=== PATIENT | female | born 1990 | race Caucasian/White ===

== ENCOUNTER 2024-02-09 22:25 | Emergency (ER) | payer MEDICARE, MEDICAID, SELFPAY ==
--- NOTE | ~2024-02-09 | XR_ITS ---
EXAMINATION: XR CHEST CLINICAL INFORMATION: Chest pain. COMPARISON: None available. TECHNIQUE: Frontal view of the chest was obtained. FINDINGS: No significant abnormality is noted involving the heart, lungs, mediastinum, bony thorax or soft tissues. XR/XR chest 1V IMPRESSION: Unremarkable examination.
[2024-02-09 22:46] VITALS: BP 131/80; PULSE 71; RESP 20; TEMP 36.4; O2SAT 95; BMI 24.4
[2024-02-10 01:57] VITALS: BP 134/77; PULSE 68; RESP 16; TEMP 36.8; O2SAT 100
--- NOTE | 2024-02-10 03:41 | ED_ITS ---
HPI - General Adult General Chief complaint: Extremity Problem Stated complaint: feeling unwell Time Seen by Provider: 02/10/24 03:25 Source: patient Mode of arrival: ambulatory Limitations: no limitations History of Present Illness ED Provider: luz marina FLORES narrative: Patient history of depression been crying unable to sleep since her mother in 12/28 from metastatic cancer patient is afraid which might have cancer too Related Data Previous Rx's ?Medication ?Instructions ?Recorded lorazepam 1 mg tablet (Ativan) 1 mg PO BID PRN anxiety #14 tabs 02/10/24 Allergies Allergy/AdvReac Type Severity Reaction Status Date / Time No Known Allergies Allergy Verified 02/09/24 22:47 [No Known Allergies*] Review of Systems Review of Systems: Yes all other systems are reviewed and are negative [facility] Social History Social History Advance Directives: No Advance Directives Information Provided: Yes Physical Exam ED Vital Signs: Vital Signs - 24 hr 02/09/24 22:46 02/10/24 01:57 02/10/24 03:55 Temperature 97.6 F 98.2 F 97.9 F Pulse Rate 71 68 67 Respiratory Rate 20 16 16 Blood Pressure 131/80 134/77 119/78 Pulse Oximetry 95 100 98 Oxygen Delivery Method Room Air Room Air Room Air 02/10/24 05:05 Temperature 97.9 F Pulse Rate 67 Respiratory Rate 16 Blood Pressure 119/78 Pulse Oximetry 98 Oxygen Delivery Method Room Air BMI result Body Mass Index 24.4 Appearance: Alert. Oriented X3. Anxious crying intermittently Eyes: PERRLA, No Nystagmus ENT: Pharynx normal. Oral Mucosa moist Neck: Normal inspection. Neck supple. CVS: Normal heart rate and rhythm. Pulses normal. Respiratory: No respiratory distress. Equal air entry bilateral, no wheezing/rales/rhonchi Abdomen: Soft and nontender. Bowel sounds are present, Skin: Skin warm and dry. Normal skin color. Normal skin turgor. Extremities: No lower extremity edema. No calf tenderness Neuro: Oriented X 3. Medications Administered Discontinued Medications Generic Name Dose Route Start Last Admin Trade Name Freq PRN Reason Stop Dose Admin Lorazepam 2 mg 02/10/24 03:45 02/10/24 03:52 Lorazepam 1 Mg Tablet PO 02/10/24 03:46 2 mg ONCE ONE Administration Medical Decision Making Medical Decision Making MDM Narrative: Patient's anxiety/grieving reaction discharge patient home on Ativan patient felt better after taking the medicine patient does have follow up plan care team spoke to patient briefly Independent Interpretation I performed an independent interpretation of an: Plain X-Ray Interpretation: Negative chest Xray Discharge Plan Discharge Clinical Impression: Grief reaction with prolonged bereavement Patient Disposition: Home, Self-Care Instructions: Grief and Loss (ED) Additional Instructions: Take your medication for depression as prescribed Take Ativan anxiety and sleep as prescribed and follow up with your therapist Prescriptions: New lorazepam [Ativan] 1 mg tablet 1 mg PO BID PRN (Reason: anxiety) Qty: 14 0RF Interventions: ED Discharge Assessment Last Done: 02/10/24 05:05 Discharge Date/Time: 02/10/24 05:10 Print Language: Zimbabwean
[2024-02-10] MEDS: LORazepam 1 MG TABLET 2 MG PO (03:52)
[2024-02-10 03:55] VITALS: BP 119/78; PULSE 67; RESP 16; TEMP 36.6; O2SAT 98
[2024-02-10 05:05] VITALS: BP 119/78; PULSE 67; RESP 16; TEMP 36.6; O2SAT 98
== END 2024-02-10 05:10 | disposition home or self-care (01) ==
PROVIDERS: Emergency Provider Internal Medicine
DX: F43.21 Adjustment disorder with depressed mood (principal); F32.A Depression, unspecified; Z63.4 Disappearance and death of family member
CPT/HCPCS: 71045; 99283; 99284

== ENCOUNTER 2025-06-05 10:23 | Emergency (ER) | payer MEDICARE, MEDICAID, SELFPAY ==
--- NOTE | ~2025-06-05 | XR_ITS ---
CLINICAL HISTORY: Cough 1 view chest x-ray Comparison: CR/SR - XR CHEST 2 VIEWS - 02/10/24 03:43 EDT Findings: Small patchy opacity in the left base may be developing pneumonia versus artifact from overlying breast tissue. No large effusion or pneumothorax. Heart size is normal. No acute fracture. IMPRESSION: Small patchy opacity in the left base may be developing pneumonia versus artifact from overlying breast tissue. This document has been electronically signed by: Vanessa Dempsey MD on 06/05/2025 15:43:31
[2025-06-05 11:04] VITALS: BP 113/66; PULSE 76; RESP 16; TEMP 36.3; O2SAT 97; BMI 25.1
--- NOTE | 2025-06-05 11:11 | ED.GENADULT ---
HPI - General Adult General Chief complaint: Dizziness Stated complaint: Dizziness Time Seen by Provider: 06/05/25 14:03 History of Present Illness ED Provider: Nhi Wilkinson NP HPI narrative: 34 year-old female medical history significant for anxiety, depression presents to the ED with her significant other complaining of feeling off . Denies any specific symptoms including chest pain, shortness of breath, abdominal pain, nausea or vomiting, diarrhea or constipation. Reports she is having a small period right now with a mild amount of spotting. No heavy vaginal bleeding, or vaginal bleeding with clots. Does endorse some vaginal discharge, but denies any abnormal discharge. Denies any odor, foul smell. Denies any urinary complaints such as dysuria, hematuria, urgency or frequency. Denies any fever, chills. Otherwise no recent illnesses. No sensation of the heart racing. Reports that for a month, she has had intermittent difficulty gripping things due to bilateral hand pain, but this has since resolved. Does endorse a headache, now 07/16. No dizziness, lightheadedness, feeling faint. No episodes of syncope. Related Data Previous Rx's ?Medication ?Instructions ?Recorded lorazepam 1 mg tablet (Ativan) 1 mg PO BID PRN anxiety #14 tabs 02/10/24 doxycycline hyclate 100 mg capsule 100 mg PO BID 10 days #20 caps 06/05/25 Allergies Allergy/AdvReac Type Severity Reaction Status Date / Time No Known Allergies (No Known Allergy Verified 06/05/25 11:08 Allergies*) Review of Systems Review of Systems: ROS is otherwise negative unless mentioned in HPI. [facility] Social History Social History Smoked in Last 30 Days: Yes Use of substances other than those prescribed or required for medical reasons: No Advance Directives: No Advance Directives Information Provided: No Physical Exam ED Exam Exam: Nursing notes and vital signs reviewed. Constitutional: Well-appearing, NAD. Alert. Oriented X3. Eyes: EOMI. ENT: Pharynx normal. Neck: Normal inspection. Neck supple. CVS: Normal heart rate and rhythm. Pulses normal. Respiratory: No respiratory distress. Lungs CTA. Abdomen: Soft and nontender, nondistended. No CVA tenderness bilaterally. Skin: Skin warm and dry. Normal skin color. Extremities: No lower extremity edema. Neuro: Oriented X 3. No motor deficit. Vital Signs: Vital Signs - 24 hr 06/05/25 11:04 06/05/25 14:32 Temperature 97.4 F 97.9 F Pulse Rate 76 64 Respiratory Rate 16 20 Blood Pressure 113/66 125/74 Pulse Oximetry 97 100 Oxygen Delivery Method Room Air Room Air BMI result Body Mass Index 25.1 Course Course Course Narrative: Medical screening exam performed. Please refer to detailed history, exam, evaluation, and management by primary provider. Lightheadedness and dizziness, generalized weakness and feeling unwell. Recent heavier than normal menses. Has IUD. Labs ordered. Medications Administered Discontinued Medications Generic Name Dose Route Start Last Admin Trade Name Freq PRN Reason Stop Dose Admin Acetaminophen 975 mg 06/05/25 14:20 06/05/25 14:33 Acetaminophen 325 Mg Tablet PO 06/05/25 14:21 975 mg ONCE ONE Administration Medical Decision Making Medical Decision Making [facility] Narrative: Overall she appears well. She was seen by the triage provider ordered basic lab work, which to my interpretation is overall reassuring without leukocytosis, or significant noted electrolyte abnormalities. Negative viral panel. She would like STI testing, I have ordered this, as well as bacterial vaginosis panel. We will have a chest x-ray given her report of intermittent cough, as she is a smoker to rule out underlying pneumonia though unlikely. Vitally she is stable as well. We will add on urinalysis, urine and reassess. Given complaint of 1 out of 10 headache, we will administer a dose of oral Tylenol. 1545-- Upon reassessment, she does appear well and reports improvement in her symptoms after Tylenol dose. The chest x-ray is concerning for developing pneumonia in the left lower lobe. Her lab work is otherwise reassuring, there is no indication for additional workup in the ED. The urinalysis shows small leukocytes but no bacteria, therefore less likely UTI. Negative for . We will discharge home with oral doxycycline for PNA and have her follow up with primary care provider outpatient. She is agreeable to this plan, provided return precautions to the ED. Differential Diagnosis Differential Diagnoses: The differential diagnosis associated with the presentation includes Headache, electrolyte abnormality or disturbance, anemia, , SCD Admission/Observation Consideration of admission/observation: Escalation of care including admission/observation considered (Not indicated) Lab Data [facility] Lab Attestation statement: I reviewed the patient's lab results. (Overall reassuring.) 06/05/25 11:31 06/05/25 11:31 Labs: Lab Results 06/05/25 06/05/25 Range/Units 11:31 14:16 WBC 6.5 (4.8-10.8) X10*3/uL RBC 4.52 (4.20-5.50) X10*6/uL Hgb 14.4 (12.0-16.0) g/dl Hct 42.5 (37.0-47.0) % MCV 94.0 (80.0-98.0) fL MCH 31.9 (27.0-33.0) pg MCHC 33.9 (31.0-35.0) g/dl RDW 12.5 (11.0-16.0) % Plt Count 246 (160-400) X10*3/uL MPV 10.4 (9.4-12.3) fL Immature Gran % (Auto) 0.3 (0.0-0.4) % Neut % (Auto) 69.0 (45-73) % Lymph % (Auto) 22.1 (20-40) % [place] % (Auto) 6.9 (2-11) % Eos % (Auto) 0.8 (0-4) % Baso % (Auto) 0.9 (0-2) % Lymph # (Auto) 1.4 (1.2-4.9) X10*3/uL [place] # (Auto) 0.5 (0.1-1.2) X10*3/uL Eos # (Auto) 0.1 (0.0-0.4) X10*3/uL Baso # (Auto) 0.1 (0.0-0.2) X10*3/uL Abs Immat Gran (auto) 0.02 (0.00-0.03) X10*3/uL Absolute Neuts (auto) 4.5 (2.0-8.3) x10*3/uL Absolute Nucleated RBC 0.000 (0.0-0.012) X10*3/uL Nucleated RBC % (auto) 0.0 (0.0-0.2) /100WBC Sodium 143 (135-145) mmol/L Potassium 4.2 (3.3-5.1) mmol/L Chloride 111 H (96-108) mmol/L Carbon Dioxide 24 (22-29) mmol/L Anion Gap 12 (12-20) BUN 12 (9-16) mg/dL Creatinine 0.78 (0.5-1.4) mg/dL Estim Creat Clear Calc 91.6 Estimated GFR > 60 Random Glucose 80 (60-115) mg/dL Calcium 9.6 (8.4-10.2) mg/dL Beta HCG, Quant < 2 mIU/mL Urine Color Yellow Urine Appearance Clear Urine pH 6.0 (5.0-9.0) Ur Specific [place] 1.025 (1.005-1.025) Urine Protein Trace (Neg-Trace) mg/dL Urine Glucose (UA) Negative (Negative) mg/dL Urine Ketones Trace (Negative) mg/dL Urine Blood Small (1+) H (Negative) Urine Nitrite Negative (Negative) Ur Leukocyte Esterase Small (1+) H (Negative) Urine RBC 11-20 H (0-2) /HPF Urine WBC 21-50 H (0-5) /HPF Ur Squamous Epith Cells 3-5 (0-2) /HPF Urine Bacteria None Seen (None Seen) Hyaline Casts 3-5 (0-2) /LPF Urine Test NEGATIVE (NEGATIVE) COVID-19 (JUDY) Negative (Negative) COVID-19 Clin Com See Note Influenza Type A (DANIELLE) Negative (Negative) Influenza Type B (DANIELLE) Negative (Negative) Influenza A & B Note See Note Blood Type O Positive Antibody Screen NEGATIVE Independent Interpretation I performed an independent interpretation of an: Plain X-Ray Interpretation: I have reviewed the patient's imaging and agree with the radiologist's findings. Radiology Impression Discussion of test interpretation with radiology: I have reviewed the radiologist's reading. Radiologist Impression: CXR IMPRESSION: Small patchy opacity in the left base may be developing pneumonia versus artifact from overlying breast tissue. Independent Historian Clinical information obtained from an independent historian. History obtained from or confirmed by: Spouse (Boyfriend at bedside.) External Record Review External record reviewed: Other (Prior ER visit.) Chronic Conditions Patient?s care impacted by: Other (Anxiety, Depression) Social Determinants Patient?s care significantly limited by Social Determinants of Health including: Alcoholism and drug addiction in family and Problems related to primary support group Discharge Plan Discharge Clinical Impression: Cough Qualifiers: Cough type: acute Qualified Code(s): R05.1 - Acute cough CAP (community acquired pneumonia) Qualifiers: Laterality: left Lung location: lower lobe of lung Qualified Code(s): J18.9 - Pneumonia, unspecified organism Patient Disposition: Home, Self-Care Instructions: Community Acquired Pneumonia (DC) Additional Instructions: As we discussed, the x-ray of your chest was concerning for developing left lower lobe pneumonia. Otherwise, your lab work is reassuring. You were negative for COVID, flu, RSV. In the urine sample does not show evidence of infection at this time. Please complete the full course of the antibiotics as prescribed. Please follow up with your primary care provider within 1 week. With any worsening complaints, return back to the ED for reassessment. Prescriptions: New doxycycline hyclate 100 mg capsule 100 mg PO BID 10 Days Qty: 20 0RF No Action lorazepam [Ativan] 1 mg tablet 1 mg PO BID PRN (Reason: anxiety) Qty: 14 0RF Referrals: [facility] [place] Family Medicine [Provider Group, Family Practice] Print Language: Bolivian
[2025-06-05 11:37] LABS: MANUAL DIFF FLAG NO
[2025-06-05 11:47] LABS: Hematocrit 42.5 % (37.0-47.0); Hemoglobin 14.4 g/dl (12.0-16.0); Imm Gran Abs Auto 0.02 X10*3/uL (0.00-0.03); Imm Gran Pct Auto 0.3 % (0.0-0.4); Lymphocytes Absolute Auto 1.4 X10*3/uL (1.2-4.9); Mean Corpuscular HGB Conc 33.9 g/dl (31.0-35.0); Mean Corpuscular Hemoglobin 31.9 pg (27.0-33.0); Mean Corpuscular Volume 94.0 fL (80.0-98.0); NRBC Abs Auto 0.000 X10*3/uL (0.0-0.012); NRBC Pct Auto 0.0 /100WBC (0.0-0.2); Platelet Count 246 X10*3/uL (160-400); Red Blood Count 4.52 X10*6/uL (4.20-5.50); White Blood Count 6.5 X10*3/uL (4.8-10.8)
[2025-06-05 11:52] LABS: Anion Gap 12 (12-20); Blood Urea Nitrogen 12 mg/dL (9-16); Calcium 9.6 mg/dL (8.4-10.2); Carbon Dioxide 24 mmol/L (22-29); Chloride 111 mmol/L (96-108); Creatinine Clr Calc Pharmacy 91.6; Estimated Glomerular Filt Rate > 60; Potassium 4.2 mmol/L (3.3-5.1); Sodium 143 mmol/L (135-145)
[2025-06-05 11:56] LABS: COVID-19 Test Negative (Negative); IDNOW Serial# 55D5AD1C
[2025-06-05 11:57] LABS: IDNOW Serial# 58CA691E; Influenza B2 Negative (Negative)
--- OUTSIDE RECORDS SUMMARY | 2025-06-05 13:22 | XMS_ITS | Clinical Summary ---
Author Organization [facility] [address] [facility] Address [address], [place] Phone Care Team Providers Care Admin Dir Name Role Phone Daja Guerra MD Primary Care Provider [phone] Allergies No known active allergies Medications diclofenac (VOLTAREN) 1 % topical gel Apply 2 g topically 4 times daily. Apply to right elbow. 04/06/20 24 Active acetaminophen (TYLENOL) 500 mg tablet Take 1 tablet (500 mg total) by mouth every 6 (six) hours if needed. 04/15/20 23 Active methylphenidate (Concerta) 36 mg ER tablet TAKE 1 TABLET BY MOUTH EVERY DAY IN THE MORNING DNF UNTIL 07/31/21 NEED INS 08/01/19 22 Active levonorgestreL (Kyleena) 17.5 mcg/24 hr (5 yrs) 19.5 mg intrauterine device IUD 19.2 mg by Intrauterine route Once. 08/27/19 22 Active LORazepam (ATIVAN) 0.5 mg tablet TAKE 1 TABLET BY MOUTH EVERY DAY NEEDED FOR ANXIETY Active LORazepam (ATIVAN) 1 mg tablet TAKE 1 TABLET BY MOUTH TWICE A DAY NEEDED FOR ANXIETY Active naltrexone microspheres (VIVITROL) 380 mg suspension,extend ed rel recon intramuscular suspension Active sertraline (ZOLOFT) 100 mg tablet Active Active Problems Problem Noted Date Diagnosed Date Adult ADHD 04/30/2024 Overview (04/30/2024): Previous use of methylphenidate Episodic drug abuse (CMS/HCC V24, CMS/HCC V28) 1 Gallstones 04/30/2024 History of alcohol abuse 04/30/2024 OCD (obsessive compulsive disorder) 04/30/2024 IUD (intrauterine device) in place 11/07/2021 Overview (04/30/2024): Last Assessment & Plan: I discussed with the patient that the Kyleena will not interact with her current medications. We reviewed that, as the Kyleena is a hormonal medication, there is a risk that it could lead to worsening depression, however her mood symptoms may or may not be related to the IUD. Alternative contraceptive options were reviewed and the patient declines any alternative. She is currently sexually active and not interested in . I encouraged the patient to leave the IUD in place at this time and discuss her symptoms with her therapist prior to deciding to remove the IUD. In addition I assured her that the position of the strings of the IUD is appropriate and it is unlikely that her partner would experience pain from the strings of the IUD as the ends are tucked behind her cervix. This patient agrees for the IUD to remain in place at this time. Vaginal discharge 11/07/2021 Overview (04/30/2024): Last Assessment & Plan: Wet prep and GC/CT done today, will treat as indicated. Encouraged condom use for STD prevention. 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 Overview (04/30/2024): Will start valtrex at 36 weeks Anemia affecting in second trimester 1 Intellectual disability 08/20/2012 Encounters Date Type Department Care Team Description 05/05/2025 Telephone Adult Medicine [address] [id number] Daja uGerra MD from Last 3 Months Immunizations Immunization Administration Dates Next Due HPV, Quadrivalent 05/11/2014,12/01/2013,09/30/19 14 Influenza Quadravalent, MDCK , 0.5ml, preservative free (Flucelvax) 6mo and older 04/15/2023,05/05/2018 Influenza Quadravalent, MDCK , 0.5ml, with preservative (Flucelvax) 6mo and older 06/17/2017 Influenza trivalent, 0.5mL, preservative free (Fluarix; FluLaval; Fluzone) ages 6mo and older (Afluria) 3 years and older 07/31/2012 Tdap Tetanus diptheria acell ular pertussis (Boostrix; Adacel) 7yo and older 05/05/2018,04/11/2014 Surgical History Surgery Date Site/Laterality Comments WISDOM TOOTH EXTRACTION PROCEDURE: HISTORICAL WISDOM TEETH EXTRACTION TONSILLECTOMY PROCEDURE: HISTORICAL TONSILLECTOMY SECTION 07/2018 PROCEDURE: HISTORICAL DELIVERY CHOLECYSTECTOMY 2018 PROCEDURE: HISTORICAL CHOLECYSTECTOMY Medical History Medical History Date Comments Adult ADHD DX:Adult ADHD; C OMMENT: sees a counselor OCD (obsessive compulsive disorder) DX:OCD (obsessive compulsive disorder); COMMENT: sees a counselor Chlamydia 2012 DX:Chlamydia Herpes simplex type 1 antibody positive DX:Herpes simplex type 1 antibody positive Alcohol abuse DX:Alcohol abuse Episodic drug abuse (CMS/HCC V24, CMS/HCC V28) DX:Episodic drug abuse ([facility]) Gallstones DX:Gallstones Family History Medical History Relation Name Comments No Known Problems Brother Other: Other Father hip surgery Other: Prostate Cancer Father No Known Problems Maternal Grandfather pt doesnt know him, mom states ?diabetic Other: Other Maternal Grandmother kidney infection and became septic Alcohol abuse Mother Lung cancer Mother Diabetes Paternal Grandfather Breast cancer Paternal Grandmother HTN, h igh cholesterol, diabetes Colon cancer Neg Hx Relation Name Status Comments Brother Alive Father Alive Maternal Grandfather Maternal Grandmother Mother Paternal Grandfather Alive Paternal Grandmother Alive Social History Tobacco Use Types Packs/Day Years Used Date Smoking Tobacco: Every Day Cigarettes Smokeless Tobacco: Never Alcohol Use Standard Drinks/Week Comments No 0 (1 standard drink = 0.6 oz pur e alcohol) Comments Unknown Sex and Gender Information Value Date Recorded Sex Assigned at Not on file Legal Sex Female 12:09 AM EST Gender Identity Not on file Sexual Orientation Not on file Obstetrics History Last Filed Vital Signs Vital Sign Reading Time Taken Comments Blood Pressure 121/72 09/07/2024 11:54 AM EST Pulse 100 09/07/2024 11:54 AM EST Temperature 36.3 C (97.3 F) 09/07/2024 11:54 AM EST Respiratory Rate 16 09/07/2024 11:54 AM EST Oxygen Saturation 99% 09/07/2024 11:54 AM EST Inhaled Oxygen Concentration - - Weight 62.8 kg (138 lb 8 oz) 09/07/2024 11:54 AM EST Height 160 cm (5' 3 ) 09/07/2024 11:54 AM EST Body Mass Index 24.53 09/07/2024 11:54 AM EST Plan of Treatment Health Maintenance Due Date Last Done Comments Hepatitis A Vaccines (1 of 2 - Risk 2-dose series) 2009 Hepatitis B Vaccines (1 of 3 - 19+ 3-dose series) 2009 Pneumococcal Vaccine: Pediatrics (0 to 5 Years) and At-Risk Patients (6 to 49 Years) (1 of 2 - PCV) 2009 Medicare Annual Wellness Visit 06/09/2022 Social Influencers of Health Screening 06/09/2022 Depression Screening 07/07/2024 COVID-19 Vaccine ( season) 2025 06/11/2021, 09/20/2020, 08/23/2020 Influenza Vaccine (#1) 2025 , 05/05/2018, 06/17/2017, Additional history exists Cervical Cancer Screening: HPV 04/18/2025 04/18/2020 DTaP,Tdap,and Td Vaccines (3 - Td or Tdap) 05/05/2028 05/05/2018, 04/11/2014 Cholesterol Screening (Lipid Panel) 04/27/2029 04/27/2024, 04/27/2024 RSV Immunization Adult Patients (1 - 1-dose 75+ series) 2065 HPV Vaccines Completed 05/11/2014, 11/05, 09/29/2013 HIV Screening Completed 11/15/2022 Hepatitis C Screening Completed 11/15/2022 HIB Vaccines Aged Out No longer eligi ble based on patient's age to complete this topic IPV Vaccines Aged Out No longer eligi ble based on patient's age to complete this topic MMR Vaccines Aged Out No longer eligi ble based on patient's age to complete this topic Meningococcal ACWY Vaccine Aged Out N o longer eligible based on patient's age to complete this topic Meningococcal B Vaccine Aged Out No l onger eligible based on patient's age to complete this topic RSV Immunization Patients Under 20 months Aged Out No longer eligible based on patient's age to complete this topic Varicella Vaccines Aged Out No longer eligible based on patient's age to complete this topic Procedures Procedure Name Priority Date/Time Associated Diagnosis Comments LIPID PANEL Routine 04/27/2024 HEPATITIS C SCREENING Routine 11/15/2022 HIV SCREENING Routine 11/15/2022 HPV Routine 04/18/2020 from Last 3 Months or Most Recently Relevant to Health Maintenance Results * Lipid panel (04/27/2024) Pathologist [facility] LDL/HDL Ratio 2 0 - 4 Triglycerides 40 0 - 150 mg/dL Cholesterol 160 0 - 200 mg/dL HDL 81 >=40 mg/dL LDL Cholesterol 71 0 - 100 mg/dL Blood Venous blood specimen / Unknown [facility] Provider LAB BLOOD ORDERABLES Julianne l Result * HIV Screening (11/15/2022) [facility] HIV Screening Abstracted [facility] Provider HEALTH MAINTENANCE Final Result * Hepatitis C Screening (11/15/2022) [facility] Hepatitis C Screening Abstracted [facility] Provider HEALTH MAINTENANCE Final Result * Cervical Cancer Screening: HPV (04/18/2020) [facility] Cervical Cancer Screening: HPV No interpretation , Abstracted [facility] Provider HEALTH MAINTENANCE Final Result from Last 3 Months or Most Recently Relevant to Health Maintenance Insurance MEDICARE MEDICAID - [place] Advance Directives Documents on File Type Date Recorded Patient Fur Nailer Expl anation Health Care Decision (hx) 08/04/2018 AD PATE DIRECTIVE Care Teams Admin Dir Relationship Specialty Start Date End Date Daja Guerra MD [address] [place] [id number] PCP - General 09/10/22
--- OUTSIDE RECORDS SUMMARY | 2025-06-05 13:22 | XMS_ITS | Clinical Summary ---
Author Organization [facility] Address [address] [place] [address] Care Team Providers Care Sheet Metal Assembler Name Role Phone Unavailable Primary Care Provider Unavailabl e Allergies No known active allergies Medications Medication Sig Dispensed Refills Start Date End Date Status sertraline (ZOLOFT) 50 MG tablet 0 01/11/2016 Active methylphenidate (CONCERTA) 54 MG CR tablet 0 01/16/2016 Active ARIPiprazole (ABILIFY) 10 MG tablet Take 10 mg by mouth daily. 0 Active Social History Tobacco Use Types Packs/Day Years Used Date Smoking Tobacco: Every Day Cigarettes 2 Alcohol Use Standard Drinks/Week Comments Yes 1 (1 standard drink = 0.6 oz pur e alcohol) Sex and Gender Information Value Date Recorded Sex Assigned at Not on file Gender Identity Not on file Sexual Orientation Not on file Last Filed Vital Signs Vital Sign Reading Time Taken Comments Blood Pressure 104/58 02/19/2016 10:14 AM EDT Pulse 95 02/19/2016 10:14 AM EDT Temperature 36.8 C (98.3 F) 02/19/2016 10:14 AM EDT Respiratory Rate 16 02/19/2016 10:14 AM EDT Oxygen Saturation 96% 02/19/2016 10:14 AM EDT Inhaled Oxygen Concentration - - Weight 61.2 kg (135 lb) 02/19/2016 12:54 AM EDT Height 160 cm (5' 3 ) 02/19/2016 12:54 AM EDT Body Mass Index 23.91 02/19/2016 12:54 AM EDT Plan of Treatment Not on file
--- OUTSIDE RECORDS SUMMARY | 2025-06-05 13:22 | XMS_ITS | Data Portability ---
Author Organization [place] - [facility] Address [address] [place] [id number] Care Team Providers Care Manager Of Recruiting Name Role Phone [facility] Primary Care Provider Assessment Encounter Date Assessment Date Assessment LastModified by Organization Details LastModified Time 06/25/2021 06/25/2021 Overview/History : 30 yo f with PMH of ADD hx GRISEL. New to and this provider wok on Friday with a sore throat with nasal congestion and feeling tired. No sick contacts. Had a PCR done today at [facility]. Requesting rapid test. Exam: VS T 96.7 HR 65, BP 116/78, RR 18, 99% RA Constitutional: Well developed, well nourished, non-toxic appearing in no apparent distress. Eyes: PERRLA, EOMI, No swelling, no discharge, sclera /conjunctiva clear. ENMT: R TMs/Canal clear L TM obscure by cerumen without evidence of infection, no nasal discharge, nasal congestion and maxillary sinus tenderness. Erythema without exudate of oropharynx, moist mucous membranes Neck: FROM no lymphadenopathy CV: RRR no R/M/G, no edema Pulm: CTA equal bilaterally, no wheeze/rhonchi or rales on auscultation. Speaking in full sentences, no increased work of breathing. GI: Soft, non-tender to palpation. No masses, normal bowel sounds. MS: Normal tone and movement of all extremities. No cyanosis or edema. Neuro: No focal deficits, CN s II-XII intact. Psych: Calm, cooperative DDx considered, but not limited to: viral sinusitis, bacterial sinusitis, COVID-19, PE and ROS is consistent with a viral sinusitis. Will perform a rapid COVID-19 test she has done a PCR at the clinic in the [facility] today. Work up/Results: Rapid COVID 19 - Negative Plan/Discussion: Reviewed results with the patient. Advised to use Tylenol and Ibuprofen for sinus pain. Advised to use humidifier in sleeping areas. Advised patient to follow up for her COVID-19 PCR results. Handout for sinusitis management provided to patient. Patient advised if she develops new or worsening of her symptoms as listed in sinusitis handout to seek re-evaluation by or seek evaluation in the ER. The patient agreed with the plan of care. Proper Personal Protective Equipment (PPE), including gloves, eye protection, masks, and gowns, shoe cover were donned and doffed appropriately and all equipment cleaned using approved technique with germicidal disposable wipes prior to and after care of this patient according to [email or web address]. [email or web address] Not available 06/25/2021 16:53:50 Plan of Treatment Reminders Order Date Submit Date Provider Last Modified By Organization Details Last Modified Time Details Appointments None recorded. Lab rapid SARS CoV 2 Ag, QL IA, respiratory specimen 2020 l[facility], [address] [place] [address], [phone], 13:21:54 Referral None recorded. Procedures None recorded. Surgeries None recorded. Imaging None recorded. Medication Orders fluticasone propionate 50 mcg/actuati on nasal spray,suspe nsion 2020 [id number], [address] [facility], [place], [address], 16:08:26 Patient TargetsNo targets recorded. Patient Instructions Encounter Date Encounter Id Patient Instructions Last Modified By Organization Details Last Modified Time 06/25/2021 [id number] Sinusitis Instructions Basic Information Sinusitis is an inflammation of the lining of the sinuses. Sinuses are lined with mucous membranes and are filled with air. When sinuses become blocked, fluid can back up within sinuses and this creates a condition where the sinuses become swollen and can cause pain and other symptoms. Sometimes, this will allow germs such as viruses, bacteria and mold to grow and cause infection. Sinuses can become blocked due to the common cold, environmental allergies, deformities such as nose injuries or deviated septum, or growths such as polyps. Symptoms include facial pain and pressure, nasal discharge, ear pressure, having to clear the throat often, dental pain and diminished sense of smell and taste. At times fever and bad breath occur. Most cases of sinusitis (90-98 %) are viral. True bacterial sinusitis is actually quite rare. A popular belief is that is your nasal discharge is green, then it is bacterial and you need an antibiotic. Antibiotics are usually not indicated unless the following is present: symptoms last for 10 days of more and are not improving fever of at least 102 degrees facial pain that is constant for 3-4 days in a row a typical cold resolves after one week and then sudden return of symptoms with increased nasal discharge, headache and sinus pressure Instructions Medications: Decongestants: Kgwa-vnk-oievbcl decongestants such as sudafed are helpful. You should not use these for prolonged periods of time and they may not be contraindicated due to drug interactions with your regular medications or if you have medical problems such as high blood pressure. Ask your PEDIATRIC PHYSICAL THERAPIST. decongestant sprays such as Afrin and Jones-synephrine may also help your symptoms. However, if theses are used for over 3 days in a row, the congestion can actually get worse when you stop using them. So, use sparingly. If you have high blood pressure, your PEDIATRIC PHYSICAL THERAPIST may not recommend use. nasal steroid drops/spray These MAY help decrease the inflammation in the mucous membrane lining of the sinuses (there is no strong evidence to support this claim). They work best with regular use while you have your symptoms. They also work best if used a few minutes after sinus irrigation treatment (see below) Pain relief: Ibuprofen and Tylenol may be used for comfort. The maximum dose of Tylenol for adults is 4000 mg/day (or 2 extra strength tablets 4 times per day) and the recommended dose of Ibuprofen for adults 400 mg every 6 hours. Both of these medicines work best if you take them regularly for 3 days. Please follow the recommended dosage instructions on the bottle. Antibiotics: If your provider prescribed these for you, be sure that you complete the whole course. Self Care: Sinus irrigations: Obtain an ear bulb syringe from the pharmacy (a typical nose syringe, used often for infants, is too small). Cut the tip of the syringe so that it can fit snuggly in your nostril. Mix a cup of warm water with a teaspoon of non-iodized table salt and generous pinch of baking soda. Draw up some of the solution into the syringe. Plug one side of your nose while you insert the bulb syringe into the other side. Squeeze the syringe firmly but gently while you b reathe in the solution through your nose. Alternate both sides until you complete the cup of solution. Do this 2-4 times per day. After each irrigation, be sure to clean the bulb syringe in a dilute bleach solution and rinse well. Local heat: Moisten a washcloth and place this over your sinuses (cheeks and around the eyes). Over the washcloth, place a heating pad set on low. Do this for 20 minutes 4-6 times per day Hydration: drink eight, 8 oz. glasses of clear liquid per day Follow up: See your regular MD or Ear Nose and Throat doctor (if recommended by your provider) within 10 days for follow up. Seek Care Immediately if you: -develop a rash -notice significant redness or swelling around your eye -have fever that does not respond to tylenol/ibuprofen or remains >101.4 (adults) > 100.4 (children) for greater than 3 days -have a stiff neck or severe headache If you develop any new or worsening symptoms and need after hours care, please go to nearest ER and/or call 911. If you have additional concerns or develop a change in your condition between 8am-10pm, please call [facility] at [phone] to help navigate your care. [email or web address] Not available 06/25/2021 16:51:45 Reason for Referral None Reported. Results Created Date Observation Date Name Description Value Unit Range Abnormal Flag Note LastModifiedBy Organization Detail LastModifiedTime 06/26/20 21 06/26/2021 rapid SARS CoV 2 Ag, QL IA, respi rator y speci men Covid-19 (ref: neg) negati ve Not Available [facility] [address] [place], [address], 06/25/2021 16:03:52 06/26/20 21 06/26/2021 rapid SARS CoV 2 Ag, QL IA, respi rator y speci men Control Visual ized/V alid Not Available [facility] [address] [place], [address], 06/25/2021 16:03:52 06/26/20 21 06/26/2021 rapid SARS CoV 2 Ag, QL IA, respi rator y speci men Location [facility], [address] [place] [address], [id number] Not Available [facility] [address] [facility], [place], [address], 06/25/2021 16:03:52 Result Notes None recorded. Medical Equipment None Reported. Allergies No known drug allergies Medications Name Sig Start Date Stop Date Status Note LastModified by Organization Details LastModified Time amoxicillin 500 mg capsule 06/25 completed Not Available Not Available Not Available naltrexone 50 mg tablet active Not Available Not Available Not Available metronidazo le 0.75 % (37.5 mg/5 gram) vaginal gel 06/25 completed Not Available Not Available Not Available amoxicillin 875 mg tablet 06/25 completed Not Available Not Available Not Available Concerta 36 mg tablet,exte nded release active Not Available Not Available Not Available ibuprofen 600 mg tablet 06/25 completed Not Available Not Available Not Available fluticasone propionate 50 mcg/actuati on nasal spray,suspe nsion [place] 1 spray every day by intranasa l route as directed for 30 days. active Not Available Not Available No t Available sertraline 50 mg tablet active Not Available Not Available Not Available medroxyprog esterone 150 mg/mL intramuscul ar suspension 06/25 completed Not Available Not Available Not Available methylpheni date ER 27 mg tablet,exte nded release 24 hr 06/25 completed Not Available Not Available Not Available NuvaRing 0.12 mg-0.015 mg/24 hr vaginal Insert 1 vaginal ring every month by vaginal route. active Not Available Not Available No t Available azithromyci n 500 mg tablet 06/25 completed Not Available Not Available Not Available chlorhexidi ne gluconate 0.12 % mouthwash 06/25 completed Not Available Not Available Not Available Vivitrol active Not Available Not Avai lable Not Available Vitals Date Recorded Body temperature Respiratory rate Oxygen saturation Heart rate Body temperature Heart rate Oxygen saturation Respiratory rate Heart rate Oxygen saturation Body temperature Respiratory rate Provider Name and Address Organization Details Last Updated DateTime 96.7 [degF] 18 /min 99 % 65 /min 96.7 [degF] 65 /min 99 % 18 /min 65 /min 99 % 96.7 [degF] 18 /min Not Available [facility] 15:59:10 Date Recorded Systolic And Diastolic Systolic And Diastolic Systolic And Diastolic Provider Name and Address Organization Details Last Updated DateTime 06/25/2021 116/78 mm[Hg] 116/78 mm[Hg] 116/78 mm[Hg] Not Available [facility] 06/25/2021 15:59:10 Social History Question Answer Notes LastModified by [email or web address] Details LastModified Time Tobacco Smoking Status Current Every Day Smoker 3-5 cig/day Angelica Leavitt NP [address] [facility], [place], [address], [place] - [facility] 06/25/2021 15:52:22 Which Illicit Or Recreational Drugs Have You Used? Marijuana Information not available 06/25/2021 Excessive Alcohol Or Drug Use No Information not available 06/25/2021 Does This Patient Have A PCP? Yes Information not available 06/25/2021 How Many Years Have You Smoked Tobacco? 10 Information not available 06/25/2021 Sex: Unknown Functional Status Question Answer Note LastModified by [email or web address] Details LastModified Time Do you use any illicit or recreational drugs? Yes Information not available 06/25/2021 What is your level of alcohol consumption? None sober Information not available 06/25/2021 Mental Status None recorded. Family History Relationship Description Onset Age of this Age Resolved Age Notes LastModified by Organization Details LastModified Time Mother Anxiety [email or web address] Not available 15:50:32 Mother Hypertensive disorder lnovia Not available 2020 15:50:46 Medical History No medical history recorded. Gynecological HistoryNo gynecological history recorded. Obstetrics History GPAL:G 0 P 0 0 0 0 Past Encounters Encounter ID Performer Location Encounter Start Date Encounter Closed Date Diagnosis/Indication Diagnosis SNOMED-CT Code Diagnosis ICD10 Code Diagnosis IMO Codes Diagnosis Note [id number] Angelica Leavitt NP [facility] [address] [place] [address] 06/25/2021 15:34:42 06/30/2021 19:17:16 Congestion of nasal sinus 59411594 R09.81 Health Concerns Section Related Observation LastModified by Organization Detai ls LastModified Time None Recorded Concern Status LastModified by Organization Details LastModified Time None Recorded Advance Directives Directive None Recorded Payers Insurance Date Sequence Insurance Name Policy Number Policy Stein Covered Member ID Stein Member ID Guarantor Name 06/25/2021 1 [facility] [id number] Lisette A Richter [id number] Lisette Richter 06/30/2021 1 [place] Lisette A Richter [id number] Lisette Richter 06/25/2021 1 *SELF PAY* Lisette Richter [id number] Lisette Richter 06/25/2021 1 [facility] [place] Lisette Richter [id number] Lisette Richter 06/25/2021 1 [facility]ICA[facility] [id number] Lisette Richter [id number] Lisette Richter 06/30/2021 1 [facility] [id number] Lisette A Richter [id number] Lisette Richter 06/30/2021 1 [facility] [id number] Lisette A Richter [id number] Lisette Richter Notes Date Note Type Note Provider Name and Address Organization Details Recorded Time 06/25/2021 text/html 30 yo f with PMH of ADD hx GRISEL is requesting evaluation for sore throat with nasal congestion that started on Friday she also states she feels tired . Denies fever. No sick contacts. Had a PCR done today at [facility]. Requesting rapid test. Angelica Leavitt NP [address], [place], [address], [place] - [facility] 06/26/2021 13:22:08 OBGyn Episode No OBEpisode recorded.
[2025-06-05 14:26] LABS: Appearance Urine Clear; Glucose Urine UA Negative (Negative); PH 6.0 (5.0-9.0); Specific Gravity - Urine 1.025 (1.005-1.025); UMIC TRIGGER UA YES; UPreg QC Valid YES
[2025-06-05 14:32] VITALS: BP 125/74; PULSE 64; RESP 20; TEMP 36.6; O2SAT 100
[2025-06-05 16:01] VITALS: BP 125/74; PULSE 64; RESP 20; TEMP 36.6; O2SAT 100
[2025-06-05 16:01] LABS: Bacterial Vaginosis PCR POSITIVE (Negative); Candida Group PCR DETECTED (Not Detect); Candida glab krusei PCR NOT DETECTED (Not Detect); Trichomonas vaginalis PCR NOT DETECTED (Not Detect)
[2025-06-05 16:33] LABS: CT PCR NOT DETECTED (Not Detect.); NG PCR NOT DETECTED (Not Detect.)
== END 2025-06-05 16:02 | disposition home or self-care (01) ==
PROVIDERS: Nurse Practitioner; Physician Assistant; Emergency Provider Emergency Medicine Emergency Medical Services
DX: J18.9 Pneumonia, unspecified organism (principal); R05.1 Acute cough; R42 Dizziness and giddiness; Z03.818 Encounter for observation for suspected exposure to other biological agents ruled out; Z20.2 Contact with and (suspected) exposure to infections with a predominantly sexual mode of transmission
CPT/HCPCS: 71045; 80048; 81001; 81025; 81515; 84702; 85025; 86850; 86900; 86901; 87491; 87502; 87591; 87635; 99284

== ENCOUNTER → 2025-06-05 14:11 | Outpatient (BNV) | payer MEDICARE, MEDICAID, SELFPAY | PROVIDERS: Emergency Provider Emergency Medicine Emergency Medical Services; Visit Provider Radiology Diagnostic Radiology | DX: R91.8 Other nonspecific abnormal finding of lung field (principal) | CPT/HCPCS: 71045 ==